=== PATIENT | female | born 1985 | race African-American/Black ===

== ENCOUNTER 2018-05-06 18:08 | Emergency (ER) | payer OTHER ==
[~2018-05-06] VITALS: Ht 160 cm; Wt 59.0 kg
[2018-05-06 18:15] VITALS: BP 146/84
--- NOTE | 2018-05-06 18:24 | PHYS DOC ---
Past Medical History Past Medical History: Asthma Past Surgical History: No Surgical History Alcohol Use: None Drug Use: None Adult General Chief Complaint Chief Complaint: ABSCESS HPI HPI Patient presents to the emergency department for evaluation. She states that she has had a tender swollen area just inferior to her tragus on the anterior aspect of the left auricle, near her external auditory canal. She states that this has been present for the past 4-5 days, she has had some purulent drainage from the area. The area is tender to touch. She states she has had "cysts" in that area before, and had to have them drained in the past, but not recently. Palpation of the affected area worsens her pain. She does not have any other painful areas or any other complaints at this time. She has not had any fevers or chills. Review of Systems Review of Systems Constitutional: Denies fever or chills [] HENT: Denies nasal congestion or sore throat [] Respiratory: Denies cough or shortness of breath [] : Denies LMP 2 weeks ago. [] Neurologic: Denies headache, focal weakness or sensory changes [] Current Medications Current Medications Current Medications Medications (Trade) Dose Ordered Sig/Dimitri Start Time Stop Time Status Last Admin Dose Admin Lidocaine HCl (Xylocaine 1% Pf 30ml Vial) 30 ml 1X ONCE 05/06/18 19:00 05/06/18 19:01 05/06/18 18:45 30 ML Allergies Allergies Allergies Coded Allergies Type Severity Reaction Last Updated Verified No Known Drug Allergies 05/06/18 No Physical Exam Physical Exam PHYSICAL EXAM: CONSTITUTIONAL: Well developed, well nourished HEAD: normocephalic, atraumatic EENT: PERRL, EOMI. Conjunctivae normal color, sclerae non-icteric; moist mucous membranes. There is no mastoid tenderness to palpation. On the left auricle, just medial to the tragus, there is a cutaneous abscess, with a small scab in the center, which intrudes to an obscure is the external auditory canal. The tympanic membrane is not visible. The right auricle tympanic membrane are unremarkable. NECK: Supple, non-tender; no meningismus. There is no lymphadenopathy. LUNGS: Lungs CTA, breathing even and unlabored. Normal air movement. HEART: Regular rate and rhythm, no murmur SKIN: No rash; no diaphoresis NEURO: Alert; normal speech and cognition; CN's grossly intact; strength grossly intact without focal deficit. Current Patient Data Vital Signs Vital Signs Date Time Temp Pulse Resp B/P (MAP) Pulse Ox O2 Delivery O2 Flow Rate FiO2 05/06/18 18:15 98.6 80 18 146/84 (104) 100 Room Air 98.6 EKG EKG [] Radiology/Procedures Radiology/Procedures [] Course & Med Decision Making Course & Med Decision Making INCISION AND DRAINAGE PROCEDURE NOTE: The left auricle and skin of the external auditory canal meatus was prepped with Betadine, and anesthetized with 1 mL of 1% lidocaine without epinephrine. Initially, the cystic/pustular structure was aspirated, with return of about 3 mL of pus. The skin of the lesion was then incised with a cruciate incision. The wound was probed with a blunt forceps. Estimated measurement is about 1.5 cm x 1.5 cm. A small amount of gauze packing was placed in the wound. I discussed wound care instructions with the patient. 6:45 PM: The patient's condition remains stable. I discussed wound care with the patient, including daily packing changes to the next several days, topical antibiotic application, warm compresses, and the need for follow-up. Return precautions were discussed as well. Dragon Disclaimer Dragon Disclaimer This electronic medical record was generated, in whole or in part, using a voice recognition dictation system. Departure Departure Impression: Primary Impression: Abscess of external ear Disposition: 01 HOME, SELF-CARE Condition: STABLE Referrals: NON,STAFF (PCP) NEGRA LAWRENCE MD Patient Instructions: Abscess, Abscess, Care After, Incision and Drainage, Care After Scripts Cephalexin (KEFLEX) 500 Mg Capsule 500 MG PO QID for 7 Days, #28 CAP Prov: NAVDEEP GARCIA MD 05/06/18 Mupirocin Calcium (BACTROBAN CREAM) 15 Gm Cream..g. 1 MÓNICA TP TID, #30 GM Prov: NAVDEEP GARCIA MD 05/06/18 Sulfamethoxazole/Trimethoprim (BACTRIM DS TABLET) 1 Each Tablet 1 TAB PO BID, #14 TAB Prov: NAVDEEP GARCIA MD 05/06/18 NAVDEEP GARCIA MD May 06, 2018 18:24
[2018-05-06] MEDS: LIDOCAINE 1% PF 30 ML VIAL. INJ ONE (18:45)
[2018-05-06] MEDS ORDERED: CEPH-264 PO (18:51)
[2018-05-06] MEDS ORDERED: SULF1TAB24 PO (18:51)
[2018-05-06] MEDS ORDERED: MUPI15CR TP (18:51)
== END 2018-05-06 19:00 | disposition home or self-care (01) ==
LOC: ER 18:08
DX: H60.02 Abscess of left external ear (principal); J45.909 Unspecified asthma, uncomplicated
CPT/HCPCS: 69000; 99283-25